=== PATIENT | female | born 1965 | race Caucasian/White ===

== ENCOUNTER 2020-09-17 17:04 | Emergency (ER) | payer BC, OTHER ==
[2020-09-17 17:16] VITALS: BP 128/86; PULSE 79
--- NOTE | 2020-09-17 17:28 | EDM.PDOC ---
ED HPI GENERAL MEDICAL PROBLEM - General Chief Complaint: Lower Extremity Injury/Pain Stated Complaint: FALL/R FOOT PAIN Time Seen by Provider: 09/17/20 17:28 Source of Information: Reports: Patient History Limitations: Reports: No Limitations - History of Present Illness INITIAL COMMENTS - FREE TEXT/NARRATIVE: Patient is a 55-year-old female who presents to the ED complaining of right foot pain with swelling. Patient states she was riding a young horse when the horse fell over on the right side after losing its footing while the patient was attempting to correct a turn. Horse laid on her right leg injuring her right foot. Patient denies hitting her head or LOC. She denies any pain to her neck, back, chest, abdomen, pelvis, right upper/lower leg, right knee, right ankle, or other injuries to the remaining extremities. Pain is controlled at this point. She does not request anything for the pain. She did come into the ED with crutches. Is nonambulatory secondary to the foot pain. Right Foot Pain Score (Numeric/FACES): 7 - Related Data Allergies Allergy/AdvReac Type Severity Reaction Status Date / Time Penicillins Allergy Rash Verified 09/17/20 17:16 Home Meds: Home Meds . [No Known Home Meds] 08/20/15 [History] Past Medical History - Past Health History Medical/Surgical History: Denies Medical/Surgical History - Infectious Disease History Infectious Disease History: Reports: None - Past Surgical History Musculoskeletal Surgical History: Reports: Other (See Below) Other Musculoskeletal Surgeries/Procedures:: right ankle surgery Review of Systems - Review of Systems Review Of Systems: Comprehensive ROS is negative, except as noted in HPI. ED EXAM, GENERAL - Physical Exam Exam: See Below Exam Limited By: No Limitations General Appearance: Alert, WD/WN, No Apparent Distress Ears: Hearing Grossly Normal Nose: Normal Inspection Throat/Mouth: Normal Voice, No Airway Compromise Head: Atraumatic, Normocephalic Neck: Normal Inspection, Supple, Non-Tender, Full Range of Motion Respiratory/Chest: No Respiratory Distress, No Accessory Muscle Use Cardiovascular: Normal Peripheral Pulses, Regular Rate, Rhythm Peripheral Pulses: 2+: Popliteal (R) GI/Abdominal: Soft, Non-Tender Back Exam: Normal Inspection, Full Range of Motion. No: Muscle Spasm, Paraspinal Tenderness, Vertebral Tenderness Extremities: Other (Mertens noted to the lateral aspect of the right foot along the dorsal aspect with increasing pain with palpation. No pain along the lateral and medial malleolus. No pain along the tib-fib, right knee, upper thigh, or pelvis.) Neurological: Alert, Oriented, Normal Cognition, No Motor/Sensory Deficits Psychiatric: Normal Affect, Normal Mood Skin Exam: Warm, Dry, Intact, Normal Color, Other (Small abrasion noted to the medial aspect of the distal aspect of the tib-fib. No swelling, bruising, or bony point tenderness.) Course - Vital Signs Last Recorded V/S: Last Vital Signs Temp 98.2 F 09/17/20 17:14 Pulse 79 09/17/20 17:14 Resp 16 09/17/20 17:14 BP 128/86 09/17/20 17:14 Pulse Ox 98 09/17/20 17:14 - Orders/Labs/Meds Orders: Active Orders 24 hr Category Date Time Status Foot Comp Min 3V Rt [CR] Stat Exams 09/17/20 17:31 Taken DME for Discharge [COMM] Stat Oth 09/17/20 19:28 Ordered - Re-Assessments/Exams Free Text/Narrative Re-Assessment/Exam: X-ray of the right foot will be obtained. X-ray of the right foot reviewed with Dr. Medina. This reveals a obvious fracture to the fifth metacarpal and also carpal fracture to the fourth metacarpal. The fifth metacarpal is displaced. Suspect this will require surgical intervention. No other acute bony abnormalities noted. Will order walking boot to be applied. Patient did come in on crutches of her own. Reviewed x-ray with the patient. She had no further question concerns. She will follow-up with orthopedic surgeon of her choice this week. Discharge instructions as document. Refuses any narcotic pain meds to be discharged with. Departure - Departure Time of Disposition: 19:25 Disposition: Home, Self-Care 01 Condition: Good Clinical Impression: Closed fracture of foot Foot fracture, right Qualifiers: Encounter type: initial encounter Fracture type: closed Qualified Code(s): S92.901A - Unspecified fracture of right foot, initial encounter for closed fracture - Discharge Information Instructions: Crutch Use, Adult, [id number] Referrals: Catarino Rodrigez MD [Physician] - Forms: ED Department Discharge Additional Instructions: You are to be nonweightbearing toe-touch only for balance. Elevate when able to reduce any swelling and pain. Use crutches to ambulate. Use the walking boot when sleeping and with ambulating. Elevate when able to reduce any swelling and pain. Apply ice to the affected extremity 4 times a day, 20 minutes in duration, do not apply ice directly on the skin. Utilize Tylenol and ibuprofen in alternating fashion for pain. Please follow-up with orthopedic surgeon or manager regulatory of your choice this coming week for reevaluation. Call to make an appointment tomorrow. Return to the ED if you develop any new or worsening symptoms. Sepsis Event Note (ED) - Evaluation Sepsis Screening Result: No Definite Risk - Focused Exam Vital Signs: Vital Signs Temp Pulse Resp BP Pulse Ox 09/17/20 17:14 98.2 F 79 16 128/86 98 - My Orders Last 24 Hours: My Active Orders 09/17/20 17:31 Foot Comp Min 3V Rt [CR] Stat 09/17/20 19:28 DME for Discharge [COMM] Stat - Assessment/Plan Last 24 Hours: My Active Orders 09/17/20 17:31 Foot Comp Min 3V Rt [CR] Stat 09/17/20 19:28 DME for Discharge [COMM] Stat
--- NOTE | 2020-09-18 08:13 | CR ---
Right foot: 4 views of the right foot were obtained. Comparison: No prior foot exam is available. Findings: Osseous: Comminuted fracture identified with in the shaft of the fifth metatarsal. Mild displacement is seen. Fractures appear to be present within the distal heads of the second and third metatarsals. Mildly displaced fracture also noted within the shaft of the fourth metatarsal. Plate and screws are seen within the distal fibula as well at as a screw between the fibula and tibia. Impression: 1. Fractures within the shafts of the fourth and fifth metatarsals as well as probable fractures within the distal head of the second and third metatarsals. 2. Previous ankle surgery. Diagnostic code #3
== END 2020-09-17 20:05 | disposition home or self-care (01) ==
LOC: JD.ED 17:04
DX: S92.341A Displaced fracture of fourth metatarsal bone, right foot, initial encounter for closed fracture (principal); S92.351A Displaced fracture of fifth metatarsal bone, right foot, initial encounter for closed fracture; Z88.0 Allergy status to penicillin; V80.010A Animal-rider injured by fall from or being thrown from horse in noncollision accident, initial encounter; Y93.52 Activity, horseback riding
CPT/HCPCS: 73630-26-RT; 73630-RT; 99282; 99283